=== PATIENT | male | born 1985 | race Caucasian/White ===

== ENCOUNTER 2020-07-07 21:57 | Emergency (ER) | payer MEDICAID, SELFPAY ==
--- NOTE | ~2020-07-07 | CT_ITS ---
EXAMINATION: CT ABDOMEN AND PELVIS WITHOUT CONTRAST CLINICAL INFORMATION: Injury to superior right gluteus, pain COMPARISON: None TECHNIQUE: Multidetector volumetric imaging was performed from the superior aspect of the liver through the pubic symphysis. Sagittal and coronal reformatted images were obtained on the technologist's workstation. This CT examination was performed using dose optimization techniques as appropriate, variously including the following: *Automated exposure control *Adjustment of mA and/or kV according to patient size (this includes techniques or standardized protocols for targeted exams where dose is matched to indication/reason for exam; i.e. extremities or head) *Use of iterative reconstruction technique DLP: 520 mGy-cm FINDINGS: LUNG BASES: The visualized lung bases are unremarkable. LIVER, GALLBLADDER, AND BILIARY TREE: The liver is normal in size, shape, and attenuation. No focal hepatic lesion or biliary ductal dilatation is present. The gallbladder is unremarkable with no evidence of radiopaque gallstones, gallbladder wall thickening, or obvious pericholecystic inflammatory changes. PANCREAS: Unremarkable. SPLEEN: Unremarkable. ADRENAL GLANDS: Unremarkable. KIDNEYS AND URETERS: The kidneys are normal in size, shape, and attenuation. No hydronephrosis, hydroureter, or calculi seen. No perinephric stranding. BLADDER: Unremarkable. GASTROINTESTINAL TRACT: The small and large bowel are unremarkable. The appendix is unremarkable. No free fluid or free air is seen. ABDOMINAL WALL: There is some subcutaneous stranding in the medial right gluteal region, suggesting contusion in the setting of trauma. No significant hernia is appreciated. LYMPH NODES: Normal. VASCULAR: Unremarkable. PELVIC VISCERA: Unremarkable. OSSEOUS STRUCTURES: No fracture identified. There is degenerative disc disease at L5-S1 with surrounding endplate osteophyte formation. CT/CT abdomen pelvis wo con IMPRESSION: Subcutaneous stranding in the medial right gluteal region suggests contusion in the setting of trauma. No acute intra-abdominal findings identified.
[2020-07-07 22:39] VITALS: BP 149/96; PULSE 112; RESP 20; TEMP 36.9; O2SAT 95; BMI 27.3
--- NOTE | 2020-07-07 23:12 | ED.WOUNDLAC ---
HPI - Wound/Laceration General Chief Complaint: Skin/Abscess/Foreign Body <Natalee Cruz MD - Last Filed: 07/08/20 09:02> Stated Complaint: Fall/Lower back wound <Natalee Cruz MD - Last Filed: 07/08/20 09:02> Time Seen by Provider: 07/07/20 23:11 <Natalee Cruz MD - Last Filed: 07/08/20 09:02> Source: patient <Natalee Cruz MD - Last Filed: 07/08/20 09:02> Mode of arrival: ambulatory <Natalee Cruz MD - Last Filed: 07/08/20 09:02> History of Present Illness HPI narrative: 34-year-old male presents after having [place] a possible [place] the [place] at approximately 2:00 p.m. this afternoon. Unknown last tetanus shot. <Natalee Cruz MD - Last Filed: 07/08/20 09:02> Related Data Allergies/Adverse Reactions: Allergies Allergy/AdvReac Type Severity Reaction Status Date / Time No Known Allergies Allergy Verified 07/07/20 22:44 <Natalee Cruz MD - Last Filed: 07/08/20 09:02> Review of Systems Review of Systems: Pertinent positives and negatives as stated in HPI 10 point review of systems otherwise negative. <Natalee Cruz MD - Last Filed: 07/08/20 09:02> PMFSH Past Medical History Source: nursing notes reviewed <Natalee Cruz MD - Last Filed: 07/08/20 09:02> Medical History: Medical History No known health problems <Natalee Cruz MD - Last Filed: 07/08/20 09:02> Social History Social History: Social History Advance Directives: No Advance Directives Information Provided: No <Natalee Cruz MD - Last Filed: 07/08/20 09:02> Physical Exam Vital Signs: Vital Signs: Last Vital Signs Temp 98.4 F 07/07/20 22:39 Pulse 112 H 07/07/20 22:39 Resp 20 07/07/20 22:39 BP 149/96 H 07/07/20 22:39 Pulse Ox 95 07/07/20 22:39 Body Mass Index 27.3 <Natalee Cruz MD - Last Filed: 07/08/20 09:02> Vital Signs: Last Vital Signs Temp 98.4 F 07/07/20 22:39 Pulse 112 H 07/07/20 22:39 Resp 20 07/07/20 22:39 BP 149/96 H 07/07/20 22:39 Pulse Ox 95 07/07/20 22:39 Body Mass Index 27.3 <DANIELLE Roman - Last Filed: 07/08/20 12:58> VITAL SIGNS: Reviewed. GENERAL: Well developed, well nourished, in no acute distress. HEAD: Normocephalic/atraumatic EYES: PERRLA, EOMI OROPHARYNX: no oral lesions noted, posterior pharynx clear NECK: Supple, no adenopathy LUNGS: Normal breath sounds. No adventitious sounds or accessory muscle use. SpO2<95> CARDIOVASCULAR: Regular rate and rhythm without noted murmurs ABDOMEN: Soft, non-tender, non-distended with bowel sounds. BACK: 40.5 CM LACERATION TO THE RIGHT SUPERIOR GLUTEUS WITH INVOLVEMENT OF MUSCLE LAYER AND APPARENT PENETRATION OTHERWISE HEMOSTATIC <Natalee Cruz MD - Last Filed: 07/08/20 09:02> Course Course Course Narrative: 34-year-old male with history and clinical presentation consistent with puncture/laceration to the right superior gluteus. Patient will receive Tdap and we will obtain CT scan of the pelvis to ascertain depth of the injury and then repair. Review of CT scan showing subcutaneous stranding consistent with patient's contusion/laceration/puncture. No evidence to suggest violation pelvic or abdominal cavity. Laceration repair completed without complications and patient discharged in stable condition. <Natalee Cruz MD - Last Filed: 07/08/20 09:02> 8:49am: Laceration repair was done. Wound cleaned with sterile saline and Betadine iodine. 10 mL of lidocaine with epi placed in wound. Sized 3 sutures were used for repair. One vertical mattress was done due to wideness of laceration. Six simple sutures were placed. No muscle or bone exposure. Laceration located lower back. <DANIELLE Roman - Last Filed: 07/08/20 12:58> Discharge Plan Discharge Clinical Impression: Laceration <Natalee Cruz MD - Last Filed: 07/08/20 09:02> Patient Disposition: Home, Self-Care <Natalee Cruz MD - Last Filed: 07/08/20 09:02> Instructions: Care For Your Stitches (ED), Laceration (ED) <Natalee Cruz MD - Last Filed: 07/08/20 09:02> Additional Instructions: Return to your primary care provider in 10 days for removal of your stitches. Recommend using Tylenol/ibuprofen as needed for pain control. Return to the ER for any acute worsening of your symptoms. <Natalee Cruz MD - Last Filed: 07/08/20 09:02> Referrals: Physician,Unknown [Primary Care Provider] - 2 days <Natalee Cruz MD - Last Filed: 07/08/20 09:02> Interventions: ED Discharge Assessment Last Done: 07/08/20 09:35 <Natalee Cruz MD - Last Filed: 07/08/20 09:02> Discharge Date/Time: 07/08/20 09:35 <Natalee Cruz MD - Last Filed: 07/08/20 09:02>
[2020-07-07] MEDS: Diphth,Pertus(ACell),Tet Adult 0.5 ML SYRINGE IM (23:31)
[2020-07-07] MEDS: Ketorolac Tromethamine 15 MG/ML VIAL IM (23:37)
[2020-07-07] MEDS: Acetaminophen 325 MG TABLET 975 MG PO (23:38)
[2020-07-08] MEDS: Lidocaine HCl 2%/Epi 1:100,000 20 ML VIAL INFILTRATI (00:43)
--- NOTE | 2020-07-08 00:44 | PC.NURSE ---
UNABLE TO PULL LIDO WITH EPI FROM PIXES. OVERIDED ORDER TO LIDO WITH EPI 2%/200,000 MD AWARE AND AGREED.
--- NOTE | 2020-07-08 01:18 | PC.NURSE ---
PT MOVED TO MAIN ED REPORT GIVEN TO CULLEN GUTIERREZ. PT HAS SUTURE KIT AT BEDSIDE.
--- NOTE | 2020-07-08 06:00 | PC.NURSE ---
PT WAITING FOR MD TO SUTURE WOUND. PT HAS BEEN SLEEPING SINCE [place] BED 11[place] [facility] [place]
== END 2020-07-08 09:35 | disposition home or self-care (01) ==
PROVIDERS: Emergency Provider Student in an Organized Health Care Education/Training Program
DX: S31.010A Laceration without foreign body of lower back and pelvis without penetration into retroperitoneum, initial encounter (principal); W45.8XXA Other foreign body or object entering through skin, initial encounter; Y93.01 Activity, walking, marching and hiking; Y92.830 Public park as the place of occurrence of the external cause; Y99.9 Unspecified external cause status
CPT/HCPCS: 12032; 74176; 90471; 90715; 96372; 96374; 96375; 99284; J1885